=== PATIENT | female | born 1990 | race Two or more races ===

== ENCOUNTER 2021-09-21 14:22 | Outpatient (CLI) | payer OTHER | END 2021-09-21 15:45 | disposition home or self-care (01) | LOC: PRENATAL 14:22 | PROVIDERS: ATTEND Obstetrics & Gynecology Maternal & Fetal Medicine | DX: O35.0XX0 Maternal care for (suspected) central nervous system malformation in fetus, not applicable or unspecified (principal); O35.3XX0 Maternal care for (suspected) damage to fetus from viral disease in mother, not applicable or unspecified; Z3A.21 21 weeks gestation of pregnancy ==

== ENCOUNTER 2022-01-12 13:45 | Inpatient (IN) | payer OTHER ==
[~2022-01-12] VITALS: Ht 170.2 cm; Wt 88.0 kg
[2022-01-16] MEDS ORDERED: PRENATAL TABLE1 EAC1 PO (05:38)
[2022-01-18] MEDS ORDERED: NAPR500T14 PO (09:26)
== END 2022-01-18 13:21 | disposition home or self-care (01) | DRG 807 ==
LOC: OB/GYN 01-16 04:27 → LDR 01-16 04:27 → OB/GYN 01-16 14:26 → LDR 01-28 13:45
PROVIDERS: ADMIT Obstetrics & Gynecology; ATTEND Obstetrics & Gynecology
PROC: 10E0XZZ Delivery of Products of Conception, External Approach (ICD-10-PCS; principal; 2022-01-16)
PROC: 0HQ9XZZ Repair Perineum Skin, External Approach (ICD-10-PCS; 2022-01-16)
PROC: 4A1HXCZ Monitoring of Products of Conception, Cardiac Rate, External Approach (ICD-10-PCS; 2022-01-16)
DX: O70.0 First degree perineal laceration during delivery (principal); Z37.0 Single live birth; Z3A.38 38 weeks gestation of pregnancy; Z20.822 Contact with and (suspected) exposure to COVID-19